=== PATIENT | female | born 1985 | race African-American/Black ===

== ENCOUNTER 2017-04-21 08:17 | Emergency (ER) | payer OTHER ==
[~2017-04-21] VITALS: Ht 162.6 cm; Wt 54.0 kg
[~2017-04-21 08:17] MED LIST: ENDOCET 5-3251 EACH PO; FLEXERIL10 MG PO; GRALISE300 MG PO; MOTRIN800 MG PO; OXYCODONE HCL20 M1 PO; ROXICODONE15 MG PO
[2017-04-21 09:03] LABS: HEMATOCRIT 37.8 % (36.0-46.0); HEMOGLOBIN 13.2 G/DL (11.9-15.5); MCH 28.5 PG (29.0-34.0); MCHC 34.9 G/DL (30.0-36.0); MCV 81.6 FL (83-99); RBC DIS.WIDTH-CV 13.2 % (11.8-14.6); RBC DIS.WIDTH-SD 38.6 % (39-53); RED BLOOD COUNT 4.63 M/uL (3.80-5.20); WHITE BLOOD COUNT 14.9 K/uL (4.1-10.2)
[2017-04-21 09:21] LABS: LIPASE 29 U/L (1.0-51.0)
[2017-04-21 09:52] LABS: PLAT.SUFFICIENCY ADEQUATE; PLATELET COUNT 266 K/uL (156-360)
[2017-04-21 11:00] LABS: ALBUMIN 4.1 g/dL (3.2-4.8); CHLORIDE 106 mEq/L (99-109); POTASSIUM 3.7 mEq/L (3.7-5.4); SODIUM 138 mEq/L (136-147)
[2017-04-21 11:02] LABS: GLUCOSE 125 mg/dL (70-99)
[2017-04-21 11:03] LABS: TOTAL PROTEIN 7.9 g/dL (6.4-8.3)
[2017-04-21 11:04] LABS: TOTAL BILIRUBIN 0.5 mg/dL (0.0-1.0)
[2017-04-21 11:06] LABS: ALKALINE PHOSPHATASE 44 IU/L (3-129); CREATININE 0.7 mg/dL (0.6-1.3); GFR ESTIMATE (CALCULATED) > 59 mL/min/
[2017-04-21 11:07] LABS: UREA NITROGEN (BUN) 13 mg/dL (9-23)
[2017-04-21 11:08] LABS: AST (GOT) 13 IU/L (2-34)
[2017-04-21 11:09] LABS: ALT (GPT) 11 IU/L (3-49)
[2017-04-21 13:16] LABS: APPEARANCE CLOUDY ((CLEAR)); BILIRUBIN NEGATIVE; BLOOD NEGATIVE; COLOR YELLOW ((YELLOW)); GLUCOSE (STRIP) 50; KETONES 80; LEUKOCYTES NEGATIVE; NITRITE NEGATIVE; PROTEIN (STRIP) 100; SPECIFIC GRAVITY 1.035 (1.000-1.030); UROBILINOGEN 0.2 MG/DL (0.2-1.0)
[2017-04-21 13:46] LABS: RED BLOOD CELLS NONE SEEN /HPF (0-5); WHITE BLOOD CELLS NONE SEEN /HPF (0-5)
[2017-04-21 13:47] LABS: BACTERIA RARE /HPF; EPITHELIAL CELLS 1+ /HPF; MUCUS TRACE /LPF
[2017-04-21] MEDS ORDERED: ZOFRAN ODT4 MG PO (14:01)
[2017-04-21 14:27] VITALS: BP 115/71
[2017-04-22] MEDS ORDERED: GABAPENTIN800 MG PO (16:23)
[2017-04-22] MEDS ORDERED: OXYMORPHONE HCL20 MG PO (16:24)
== END 2017-04-21 14:33 | disposition home or self-care (01) ==
LOC: EME 08:17
PROVIDERS: Nurse Practitioner Family
DX: O21.9 Vomiting of pregnancy, unspecified (principal); O99.282 Endocrine, nutritional and metabolic diseases complicating pregnancy, second trimester; E86.0 Dehydration; O99.332 Smoking (tobacco) complicating pregnancy, second trimester; F17.200 Nicotine dependence, unspecified, uncomplicated; O99.89 Other specified diseases and conditions complicating pregnancy, childbirth and the puerperium; M54.9 Dorsalgia, unspecified; G89.29 Other chronic pain; Z3A.16 16 weeks gestation of pregnancy
CPT/HCPCS: 80053; 81003; 83690; 85027; 99281; 99285; J2405; J7030

== ENCOUNTER 2017-04-23 08:56 | Emergency (ER) | payer OTHER ==
[~2017-04-23] VITALS: Ht 162.6 cm; Wt 54.4 kg
[~2017-04-23 08:56] MED LIST changes: +GABAPENTIN800 MG PO; +OXYMORPHONE HCL20 MG PO; +ZOFRAN ODT4 MG PO
[2017-04-23 09:00] VITALS: BP 146/77
[2017-04-23 09:26] LABS: HEMATOCRIT 34.2 % (36.0-46.0); HEMOGLOBIN 11.9 G/DL (11.9-15.5); MCH 28.3 PG (29.0-34.0); MCHC 34.8 G/DL (30.0-36.0); MCV 81.4 FL (83-99); PLATELET COUNT 230 K/uL (156-360); RBC DIS.WIDTH-CV 12.7 % (11.8-14.6); RBC DIS.WIDTH-SD 37.6 % (39-53)
[2017-04-23 09:35] LABS: ALBUMIN 3.6 g/dL (3.2-4.8)
[2017-04-23 09:36] LABS: CHLORIDE 108 mEq/L (99-109); POTASSIUM 3.3 mEq/L (3.7-5.4); SODIUM 136 mEq/L (136-147)
[2017-04-23 09:41] LABS: ALKALINE PHOSPHATASE 39 IU/L (3-129)
[2017-04-23 09:42] LABS: CREATININE 0.6 mg/dL (0.6-1.3); GFR ESTIMATE (CALCULATED) > 59 mL/min/
[2017-04-23 09:43] LABS: AST (GOT) 28 IU/L (2-34); GLUCOSE 80 mg/dL (70-99); TOTAL BILIRUBIN 0.8 mg/dL (0.0-1.0); TOTAL PROTEIN 6.6 g/dL (6.4-8.3); UREA NITROGEN (BUN) 8 mg/dL (9-23)
[2017-04-23 09:47] LABS: ALT (GPT) 34 IU/L (3-49)
[2017-04-23 10:17] LABS: QUANTITATIVE HCG 15555.3 MIU/ML
[2017-04-23 10:23] LABS: APPEARANCE SL.HAZY ((CLEAR)); BILIRUBIN NEGATIVE; BLOOD NEGATIVE; COLOR YELLOW ((YELLOW)); GLUCOSE (STRIP) 50; KETONES 80; LEUKOCYTES NEGATIVE; NITRITE POSITIVE; PROTEIN (STRIP) 100; SPECIFIC GRAVITY 1.026 (1.000-1.030)
[2017-04-23 10:27] LABS: BACTERIA 2+ /HPF; EPITHELIAL CELLS RARE /HPF; MUCUS 1+ /LPF; RED BLOOD CELLS 0-5 /HPF (0-5)
[2017-04-23] MEDS ORDERED: KEFLEX500 MG PO (10:39)
[2017-04-23] MEDS ORDERED: PHENERGAN25 MG PR (10:39)
== END 2017-04-23 11:12 | disposition home or self-care (01) ==
LOC: EME 08:56
PROVIDERS: Nurse Practitioner Family
DX: O23.42 Unspecified infection of urinary tract in pregnancy, second trimester (principal); O99.332 Smoking (tobacco) complicating pregnancy, second trimester; F17.200 Nicotine dependence, unspecified, uncomplicated; Z3A.16 16 weeks gestation of pregnancy; O99.282 Endocrine, nutritional and metabolic diseases complicating pregnancy, second trimester; E86.0 Dehydration; R11.2 Nausea with vomiting, unspecified
CPT/HCPCS: 80053; 81003; 84702; 85027; 99281; 99284; J2405; J7030

== ENCOUNTER 2017-08-11 08:16 | Outpatient (CLI) | payer OTHER ==
[~2017-08-11] VITALS: Ht 162.6 cm; Wt 65.5 kg
[~2017-08-11 08:16] MED LIST changes: +KEFLEX500 MG PO; +PHENERGAN25 MG PR
[2017-08-11 08:52] VITALS: BP 121/80
[2017-08-11] MEDS ORDERED: LYRICA150 MG PO (09:07)
[2017-08-11 14:12] LABS: HEMATOCRIT 35.7 % (36.0-46.0); HEMOGLOBIN 12.5 G/DL (11.9-15.5); MCV 82.8 FL (83-99); PLATELET COUNT 180 K/uL (156-360); RBC DIS.WIDTH-CV 13.2 % (11.8-14.6); RBC DIS.WIDTH-SD 39.8 % (39-53); RED BLOOD COUNT 4.31 M/uL (3.80-5.20); WHITE BLOOD COUNT 9.9 K/uL (4.1-10.2)
[2017-08-11 14:20] LABS: ALBUMIN 3.4 g/dL (3.2-4.8)
[2017-08-11 14:21] LABS: CHLORIDE 107 mEq/L (99-109); POTASSIUM 3.5 mEq/L (3.7-5.4); SODIUM 140 mEq/L (136-147)
[2017-08-11 14:23] LABS: GLUCOSE 116 mg/dL (70-99)
[2017-08-11 14:25] LABS: TOTAL BILIRUBIN 0.2 mg/dL (0.0-1.0)
[2017-08-11 14:26] LABS: ALKALINE PHOSPHATASE 119 IU/L (3-129)
[2017-08-11 14:27] LABS: CREATININE 0.6 mg/dL (0.6-1.3); GFR ESTIMATE (CALCULATED) > 59 mL/min/
[2017-08-11 14:28] LABS: AST (GOT) 15 IU/L (2-34); UREA NITROGEN (BUN) 8 mg/dL (9-23)
[2017-08-11 14:29] LABS: ALT (GPT) 15 IU/L (3-49)
[2017-08-11 14:30] LABS: LIPASE 16 U/L (1.0-51.0)
[2017-08-11 14:36] LABS: QUANTITATIVE HCG 8582.8 MIU/ML
[2017-08-11 15:52] LABS: APPEARANCE SL.HAZY ((CLEAR)); BILIRUBIN NEGATIVE; BLOOD NEGATIVE; COLOR AMBER ((YELLOW)); GLUCOSE (STRIP) NEGATIVE; KETONES 80; LEUKOCYTES NEGATIVE; NITRITE NEGATIVE; PROTEIN (STRIP) 100; UROBILINOGEN 0.2 MG/DL (0.2-1.0)
[2017-08-11 15:57] LABS: BACTERIA RARE /HPF; EPITHELIAL CELLS 1+ /HPF; MUCUS 2+ /LPF; RED BLOOD CELLS 0-5 /HPF (0-5); UCUL ADDED? NO; WHITE BLOOD CELLS 0-5 /HPF (0-5)
[2017-08-11 16:19] LABS: HEMOGLOBIN 13.3 G/DL (11.9-15.5); MCH 28.8 PG (29.0-34.0); MCHC 34.1 G/DL (30.0-36.0); MCV 84.4 FL (83-99); PLATELET COUNT 200 K/uL (156-360); RBC DIS.WIDTH-CV 13.4 % (11.8-14.6); RBC DIS.WIDTH-SD 41.6 % (39-53); RED BLOOD COUNT 4.62 M/uL (3.80-5.20); WHITE BLOOD COUNT 10.7 K/uL (4.1-10.2)
[2017-08-11 16:59] LABS: ABS NEUTROPHIL COUNT 8.4; ANISOCYTOSIS 1+; ATYPICAL LYMPHOCYTE 1.9 %; BAND NEUTROPHILS 10.1 % (0-8.0); BASOPH.STIPPLING 1+; BASOPHILS 0.9 %; EOSINOPHIL ABS CT 0; LYMPHOCYTES 17.4 % (15.0-45.0); MICROCYTOSIS 1+; MONOCYTES 0.9 % (0-9.0); PLAT.SUFFICIENCY ADEQUATE; POLYCHROMASIA 1+; SEG.NEUTROPHILS 68.8 % (46.0-76.0)
[2017-08-11 21:58] VITALS: BP 128/69
[2017-08-11 22:08] LABS: AMPHETAMINE NEGATIVE (500 ng/mL); BARBITURATES NEGATIVE (200 ng/mL); BENZODIAZEPINES NEGATIVE (150 ng/mL); BUPRENORPHINE PRESUMPTIVE POSITIVE (10 ng/mL); COCAINE NEGATIVE (150 ng/mL); METHADONE NEGATIVE (200 ng/mL); METHAMPHETAMINE NEGATIVE (500 ng/mL); OPIATES (MORPHINE) NEGATIVE (100 ng/mL); OXYCODONE PRESUMPTIVE POSITIVE (100 ng/mL); PHENCYCLIDINE NEGATIVE (25 ng/mL); PROPOXYPHENE NEGATIVE (300 ng/mL); THC CANNABINOIDS NEGATIVE (50 ng/mL); TRICYCLIC ANTIDEPRESSANTS NEGATIVE (300 ng/mL)
[2017-08-12 03:35] VITALS: BP 131/68
[2017-08-12 07:00] LABS: HEMATOCRIT 32.1 % (36.0-46.0); MCH 28.1 PG (29.0-34.0); MCHC 33.6 G/DL (30.0-36.0); MCV 83.6 FL (83-99); PLATELET COUNT 184 K/uL (156-360); RBC DIS.WIDTH-CV 13.4 % (11.8-14.6); RBC DIS.WIDTH-SD 41.1 % (39-53); RED BLOOD COUNT 3.84 M/uL (3.80-5.20); WHITE BLOOD COUNT 11.6 K/uL (4.1-10.2)
[2017-08-12 07:07] LABS: HEMOGLOBIN 10.8 G/DL (11.9-15.5)
[2017-08-12 07:15] LABS: ANISOCYTOSIS 1+; BASOPHIL (%) 0.2 % (0-1); EOSINOPHIL (%) 0 % (0-5); IMMATURE GRANULOCYTE (%) 0.4 % (0.0-0.7); LYMPHOCYTE (%) 20.9 % (15-42); LYMPHOCYTE COUNT 2.4 K/uL (1.0-2.8); MICROCYTOSIS 1+; MONOCYTE (%) 6.6 % (3-12); MONOCYTE COUNT 0.8 K/uL (0-0.8); NEUTROPHIL (%) 71.9 % (45-76); NEUTROPHIL COUNT 8.3 K/uL (1.8-6.4)
[2017-08-12 07:35] VITALS: BP 127/59
[2017-08-12 09:36] VITALS: BP 132/67
[2017-08-12 12:45] VITALS: BP 125/61
[2017-08-12 14:52] VITALS: BP 132/68
[2017-08-12 19:30] VITALS: BP 128/68
[2017-08-13 03:04] VITALS: BP 112/55
[2017-08-13 07:33] LABS: BASOPHIL (%) 0.1 % (0-1); EOSINOPHIL (%) 0.2 % (0-5); HEMATOCRIT 31.5 % (36.0-46.0); HEMOGLOBIN 10.5 G/DL (11.9-15.5); IMMATURE GRANULOCYTE (%) 0.8 % (0.0-0.7); LYMPHOCYTE (%) 23.4 % (15-42); LYMPHOCYTE COUNT 2.1 K/uL (1.0-2.8); MCH 28.2 PG (29.0-34.0); MCHC 33.3 G/DL (30.0-36.0); MCV 84.7 FL (83-99); MONOCYTE (%) 6.9 % (3-12); MONOCYTE COUNT 0.6 K/uL (0-0.8); NEUTROPHIL (%) 68.6 % (45-76); NEUTROPHIL COUNT 6.3 K/uL (1.8-6.4); PLATELET COUNT 175 K/uL (156-360); RBC DIS.WIDTH-CV 13.3 % (11.8-14.6); RBC DIS.WIDTH-SD 41.5 % (39-53); RED BLOOD COUNT 3.72 M/uL (3.80-5.20); WHITE BLOOD COUNT 9.1 K/uL (4.1-10.2)
[2017-08-13] MEDS ORDERED: ZITHROMAX500 MG PO (09:26)
[2017-08-13] MEDS ORDERED: AUGMENTIN875 MG PO (09:26)
[2017-08-13 09:33] VITALS: BP 135/80
== END 2017-08-13 11:35 | disposition home or self-care (01) ==
LOC: LDRP-OP 08:16 → EME 08:16 → 2WEST 08:17 → LDRP-OP 08:17 → 2WEST 08:17 → EDSTATUS 13:25 → EME 20:35 → EDOF 20:35 → ENRESERV 20:39 → CANRESERV 20:39 → EDSTATUS 21:04 → LDRP-OP 21:23 → 2WEST 21:23 → LDRP-OP 10-30 06:57
PROVIDERS: Emergency Medicine; Obstetrics & Gynecology; Obstetrics & Gynecology Obstetrics
DX: O99.513 Diseases of the respiratory system complicating pregnancy, third trimester (principal); J18.9 Pneumonia, unspecified organism; Z79.891 Long term (current) use of opiate analgesic; O99.89 Other specified diseases and conditions complicating pregnancy, childbirth and the puerperium; G89.29 Other chronic pain; M54.9 Dorsalgia, unspecified; O99.333 Smoking (tobacco) complicating pregnancy, third trimester; F17.200 Nicotine dependence, unspecified, uncomplicated; Z86.32 Personal history of gestational diabetes; Z3A.33 33 weeks gestation of pregnancy
CPT/HCPCS: 59025; 71046; 80053; 81003; 83605; 83690; 84702; 85025; 85027; 87040; 87086; 87106; 93005; 94640; G0378; J0456; J0696; J1956; J2270; J2405; J2550; J7030; J7120; Q0169

== ENCOUNTER 2017-09-26 06:59 | Inpatient (IN) | payer OTHER ==
[~2017-09-26] VITALS: Ht 162.6 cm; Wt 62.6 kg
[2017-09-26] VITALS (26 sets, daily range): BP systolic 99–142; BP diastolic 54–87
[~2017-09-26 06:59] MED LIST changes: +AUGMENTIN875 MG PO; +LYRICA150 MG PO; +ZITHROMAX500 MG PO
[2017-09-26 07:55] LABS: BASOPHIL (%) 0.2 % (0-1); EOSINOPHIL (%) 1.3 % (0-5); EOSINOPHIL COUNT 0.1 K/uL (0-0.3); HEMATOCRIT 35.6 % (36.0-46.0); HEMOGLOBIN 12.2 G/DL (11.9-15.5); IMMATURE GRANULOCYTE (%) 0.3 % (0.0-0.7); LYMPHOCYTE COUNT 2.8 K/uL (1.0-2.8); MCH 28.8 PG (29.0-34.0); MCHC 34.3 G/DL (30.0-36.0); MCV 84.2 FL (83-99); MONOCYTE (%) 8.5 % (3-12); MONOCYTE COUNT 0.8 K/uL (0-0.8); NEUTROPHIL (%) 58.7 % (45-76); NEUTROPHIL COUNT 5.3 K/uL (1.8-6.4); PLATELET COUNT 131 K/uL (156-360); RBC DIS.WIDTH-CV 14.4 % (11.8-14.6); RBC DIS.WIDTH-SD 43.8 % (39-53); RED BLOOD COUNT 4.23 M/uL (3.80-5.20)
[2017-09-26] MEDS ORDERED: LYRICA300 MG PO (08:01)
[2017-09-26] MEDS ORDERED: PRENATAL TABLE1 EAC3 PO (08:02)
[2017-09-26 09:51] LABS: TREPONEMA ANTIBODY NEGATIVE (NEGATIVE)
[2017-09-26 09:59] LABS: AMPHETAMINE NEGATIVE (500 ng/mL); BARBITURATES NEGATIVE (200 ng/mL); BENZODIAZEPINES NEGATIVE (150 ng/mL); BUPRENORPHINE NEGATIVE (10 ng/mL); COCAINE NEGATIVE (150 ng/mL); METHADONE NEGATIVE (200 ng/mL); METHAMPHETAMINE NEGATIVE (500 ng/mL); OPIATES (MORPHINE) NEGATIVE (100 ng/mL); OXYCODONE PRESUMPTIVE POSITIVE (100 ng/mL); PHENCYCLIDINE NEGATIVE (25 ng/mL); PROPOXYPHENE NEGATIVE (300 ng/mL); THC CANNABINOIDS NEGATIVE (50 ng/mL); TRICYCLIC ANTIDEPRESSANTS NEGATIVE (300 ng/mL)
[2017-09-26] MEDS ORDERED: MOTRIN800 MG PO (18:59)
[2017-09-27 06:38] LABS: BASOPHIL (%) 0.3 % (0-1); EOSINOPHIL (%) 1.3 % (0-5); EOSINOPHIL COUNT 0.1 K/uL (0-0.3); HEMATOCRIT 31.6 % (36.0-46.0); HEMOGLOBIN 10.4 G/DL (11.9-15.5); IMMATURE GRANULOCYTE (%) 0.5 % (0.0-0.7); LYMPHOCYTE (%) 30.2 % (15-42); LYMPHOCYTE COUNT 2.8 K/uL (1.0-2.8); MCHC 32.9 G/DL (30.0-36.0); MCV 85.2 FL (83-99); MONOCYTE (%) 6.6 % (3-12); MONOCYTE COUNT 0.6 K/uL (0-0.8); NEUTROPHIL (%) 61.1 % (45-76); NEUTROPHIL COUNT 5.6 K/uL (1.8-6.4); PLATELET COUNT 108 K/uL (156-360); RBC DIS.WIDTH-CV 14.4 % (11.8-14.6); RBC DIS.WIDTH-SD 44.6 % (39-53); RED BLOOD COUNT 3.71 M/uL (3.80-5.20); WHITE BLOOD COUNT 9.1 K/uL (4.1-10.2)
[2017-09-28 07:15] VITALS: BP 140/84
== END 2017-09-28 11:32 | disposition home or self-care (01) | DRG 775 ==
LOC: LDRP-OP 06:59 → 2WEST 07:00 → LDRP-OP 11:24 → 2WEST 18:36 → LDRP-OP 11-01 07:58
PROVIDERS: Nurse Practitioner; Obstetrics & Gynecology Gynecology
DX: O36.5930 Maternal care for other known or suspected poor fetal growth, third trimester, not applicable or unspecified (principal); O99.824 Streptococcus B carrier state complicating childbirth; O69.1XX0 Labor and delivery complicated by cord around neck, with compression, not applicable or unspecified; O99.89 Other specified diseases and conditions complicating pregnancy, childbirth and the puerperium; G89.29 Other chronic pain; M54.9 Dorsalgia, unspecified; Z79.891 Long term (current) use of opiate analgesic; Z3A.39 39 weeks gestation of pregnancy; Z37.0 Single live birth; Z86.32 Personal history of gestational diabetes
CPT/HCPCS: 85025; 86780; C1755; J1050; J2540; J3010; J7120